=== PATIENT | female | born 1925 | race Caucasian/White ===

== ENCOUNTER 2017-08-16 16:28 | Outpatient (CLI) | payer MEDICARE, OTHER | END 2017-08-16 16:29 | disposition critical access hospital (66) | LOC: EMS 16:28 | PROVIDERS: ATTEND Surgery | DX: M25.562 Pain in left knee (principal); R41.0 Disorientation, unspecified | CPT/HCPCS: A0425; A0429 ==

== ENCOUNTER 2017-08-16 17:11 | Inpatient (IN) | payer MEDICARE, OTHER ==
--- NOTE | 2017-08-16 17:57 | ED Physician Documentation ---
PD HPI LOWER EXT INJURY - Stated complaint Stated Complaint: FALL - Chief complaint Chief Complaint: Ext Problem - History obtained from History obtained from: Patient, Family, EMS - History of Present Illness PD HPI LOW EXT INJURY LOCATION: Other (She lives in an assisted living facility , I guess she fell about 2 days ago. The patient does not remember it. Is unclear she has been ambulatory since then, her only complaint is left knee pain. Because she has become progressively confused today and there is concern about a UTI because of the smell.) Review of Systems Unable to obtain: Confused PD PAST MEDICAL HISTORY - Past Medical History Past Medical History: Yes Endocrine/Autoimmune: HyPERthyroidism - Past Surgical History Past Surgical History: Yes - Allergies Allergies/Adverse Reactions: Allergies Allergy/AdvReac Type Severity Reaction Status Date / Time No Known Drug Allergies Allergy Verified 08/16/17 17:22 - Social History Does the pt smoke?: No Smoking Status: Never smoker Does the pt drink ETOH?: No Does the pt have substance abuse?: No - Family History Family history: reports: Non contributory - Immunizations Immunizations are current?: Yes PD ED PE NORMAL - Vitals Vital signs reviewed: Yes - General General: Other (She is alert, says the years 2027, does not remember why she is here really.) - HEENT HEENT: PERRL, EOMI - Neck Neck: Supple, no meningeal sign, No bony TTP - Cardiac Cardiac: RRR, No murmur - Respiratory Respiratory: No respiratory distress, Clear bilaterally - Abdomen Abdomen: Normal bowel sounds, Soft, Non tender - Derm Derm: Normal color, Warm and dry - Extremities Extremities: Other (The left knee is quite tender and swollen, it is tender over the medial joint line. She has a lot of pain with range of motion. She also has pain with internal and external rotation of the leg which is more from the knee than the hip.) - Neuro Neuro: breakdown person 2-12 intact, No motor deficit, No sensory deficit, Normal speech Eye Opening: Spontaneous Motor: Obeys Commands Verbal: Confused GCS Score: 14 - Psych Psych: Normal mood, Normal affect Results - Vitals Vitals: Vital Signs - 24 hr 08/16/17 08/16/17 08/16/17 17:19 19:05 20:07 Temperature 37.1 C Heart Rate 83 81 79 Respiratory 20 18 16 Rate Blood Pressure 192/78 H 161/65 H 176/71 H O2 Saturation 98 96 98 Oxygen O2 Source Room air - Labs Labs: Laboratory Tests 08/16/17 08/16/17 08/16/17 18:55 18:55 18:55 WBC 14.1 H RBC 4.52 Hgb 10.1 L Hct 32.3 L MCV 71.4 L MCH 22.3 L MCHC 31.2 L RDW 20.3 H Plt Count 295 MPV 7.8 L Neut # 10.6 H Lymph # 1.6 Edwards # 1.4 H Eos # 0.4 Baso # 0.1 Absolute Nucleated RBC 0.01 Nucleated RBC % 0.0 Manual Slide Review Indicated Platelet Estimate NORMAL (130-450,000) Platelet Morphology NORMAL APPEARANCE RBC Morph Micro Appear 2+ POIKILOCYTOSIS Sodium 137 Potassium 3.2 L Chloride 105 Carbon Dioxide 24 Anion Gap 8.0 BUN 17 Creatinine 0.8 Estimated GFR (MDRD) 68 L Glucose 114 H Calcium 8.7 Total Bilirubin 1.1 H AST 55 H ALT 71 H Alkaline Phosphatase 190 H Troponin I < 0.04 Total Protein 6.6 L Albumin 2.8 L Globulin 3.8 Albumin/Globulin Ratio 0.7 L Lipase 14 L Urine Color Urine Clarity Urine pH Ur Specific [place] Urine Protein Urine Glucose (UA) Urine Ketones Urine Occult Blood Urine Nitrite Urine Bilirubin Urine Urobilinogen Ur Leukocyte Esterase Urine RBC Urine WBC Ur Squamous Epith Cells Urine Bacteria Ur Microscopic Review Urine Culture Comments 08/16/17 19:09 WBC RBC Hgb Hct MCV MCH MCHC RDW Plt Count MPV Neut # Lymph # Edwards # Eos # Baso # Absolute Nucleated RBC Nucleated RBC % Manual Slide Review Platelet Estimate Platelet Morphology RBC Morph Micro Appear Sodium Potassium Chloride Carbon Dioxide Anion Gap BUN Creatinine Estimated GFR (MDRD) Glucose Calcium Total Bilirubin AST ALT Alkaline Phosphatase Troponin I Total Protein Albumin Globulin Albumin/Globulin Ratio Lipase Urine Color YELLOW Urine Clarity CLOUDY Urine pH 5.5 Ur Specific [place] 1.020 Urine Protein 100 H Urine Glucose (UA) NEGATIVE Urine Ketones 15 H Urine Occult Blood TRACE-LYSE Urine Nitrite POSITIVE H Urine Bilirubin SMALL H Urine Urobilinogen >=8.0 H Ur Leukocyte Esterase TRACE H Urine RBC 0-5 Urine WBC 6-10 H Ur Squamous Epith Cells FEW Squamous Urine Bacteria Many H Ur Microscopic Review INDICATED Urine Culture Comments INDICATED - Rads (name of study) X-rays of the left hip and knee Radiology: EMP read contemporaneously (Degenerative changes and a large effusion in the knee without acute bony abnormality.) PD MEDICAL DECISION MAKING - ED course ED course: This is an 89-year-old woman who presents with an acute confusion and she fell 2 days ago injuring her knee. Plain film x-rays are negative but there is a very large effusion of the left knee. She is found to have a UTI with a white count of 14 for which she was administered Rocephin and IV fluids. Given the acute confusion she will be admitted for further evaluation and treatment and I spoke with Dr. Recinos for admission at 8:18 PM. I also spoke with Dr. Owens, given the large effusion he should probably consult nonurgently while she is an inpatient regarding the left knee. Departure - Departure Disposition: [facility] DC/Xfer Clinical Impression: Effusion, left knee, Confusion UTI (urinary tract infection) Qualifiers: Urinary tract infection type: acute cystitis Hematuria presence: without hematuria Qualified Code(s): N30.00 - Acute cystitis without hematuria Condition: Stable Discharge Date/Time: 08/16/17 21:07
[2017-08-16 19:03] LABS: BASOPHILS # (AUTO) 0.1 10^3/uL (0.0-0.1); BASOPHILS % (AUTO) 0.6 %; EOSINOPHILS # (AUTO) 0.4 10^3/uL (0.0-0.7); HGB - HEMOGLOBIN 10.1 g/dL (12.0-16.0); LYMPHOCYTES # (AUTO) 1.6 10^3/uL (1.5-3.5); LYMPHOCYTES % (AUTO) 11.4 %; MEAN CORPUSCULAR HEMOGLOBIN 22.3 pg (27.0-31.0); MEAN CORPUSCULAR HGB CONC 31.2 g/dL (32.0-36.0); MEAN CORPUSCULAR VOLUME 71.4 fL (81.0-99.0); MEAN PLATELET VOLUME 7.8 fL (7.9-10.8); MONOCYTES # (AUTO) 1.4 10^3/uL (0.0-1.0); MONOCYTES % (AUTO) 9.7 %; NEUTROPHILS # (AUTO) 10.6 10^3/uL (1.5-6.6); NEUTROPHILS % (AUTO) 75.3 %; PLT - PLATELET COUNT 295 10^3/uL (130-450); RED BLOOD COUNT 4.52 10^6/uL (4.20-5.40); RED CELL DISTRIBUTION WIDTH 20.3 % (12.0-15.0); WHITE BLOOD COUNT 14.1 x10^3/uL (4.8-10.8)
--- NOTE | 2017-08-16 19:08 | XRAY Preliminary Report ---
Exam: XR HIP W/PELVIS 2-3V LT IMPRESSION: No acute bony abnormality. [facility] SITE ID: [id number]
--- NOTE | 2017-08-16 19:14 | XRAY Report ---
EXAM: LEFT HIP AND PELVIS RADIOGRAPHY EXAM DATE: 08/16/2017 06:49 PM. HISTORY: Pain since a fall 2 days ago. COMPARISONS: 06/17/2008. TECHNIQUE: 1 view of the pelvis and 1 view of the hip. FINDINGS: Bones: Normal. No fracture or bone lesion. Joints: Progression of moderate degenerative changes both hips. Normal sacroiliac joints. Soft Tissues: Lower pelvic sutures. No soft tissue swelling. IMPRESSION: No acute bony abnormality. [facility] Referring Provider Line: [phone] SITE ID: [id number]
[2017-08-16 19:17] LABS: GLUCOSE, URINE (UA) NEGATIVE (NEGATIVE); KETONES,URINE (UA) 15 mg/dL (NEGATIVE); LEUKOCYTE ESTERASE, URINE TRACE (NEGATIVE); NITRITE,URINE POSITIVE (NEGATIVE); OCCULT BLOOD,URINE TRACE-LYSE (NEGATIVE); PH,URINE 5.5 PH (5.0-7.5); PROTEIN,URINE 100 mg/dL (NEGATIVE); UROBILINOGEN,URINE >=8.0 E.U./dL (NORMAL)
--- NOTE | 2017-08-16 19:17 | XRAY Preliminary Report ---
Exam: XR KNEE 4 VIEW LT IMPRESSION: 1. No acute bony abnormality. 2. Large effusion. 3. Moderate degenerative changes, grade 2 by Kellgren sammy classification. [facility] SITE ID: [id number]
[2017-08-16 19:23] LABS: BILIRUBIN,URINE SMALL (NEGATIVE); CLARITY,URINE CLOUDY (CLEAR); ICTOTEST,URINE POSITIVE
[2017-08-16 19:26] LABS: PLATELET ESTIMATE, MANUAL NORMAL (130-450,000) (NORMAL); PLATELET MORPHOLOGY NORMAL APPEARANCE (NORMAL)
[2017-08-16 19:29] LABS: ALBUMIN 2.8 g/dL (3.2-5.5); ALBUMIN/GLOBULIN RATIO 0.7 (1.0-2.2); BILIRUBIN,TOTAL 1.1 mg/dL (0.2-1.0); CALCIUM 8.7 mg/dL (8.5-10.3); CREATININE 0.8 mg/dL (0.4-1.0); TOTAL PROTEIN 6.6 g/dL (6.7-8.2)
[2017-08-16 19:30] LABS: BACTERIA,URINE Many /HPF (None Seen); RBC,URINE 0-5 /HPF (0-5); SQUAMOUS EPITHELIAL CELL,UR FEW Squamous (<= Few)
--- NOTE | 2017-08-16 19:34 | XRAY Report ---
EXAM: left KNEE RADIOGRAPHY EXAM DATE: 08/16/2017 06:50 PM. CLINICAL HISTORY: Pain since a fall 2 days ago. COMPARISON: None. TECHNIQUE: 4 views. FINDINGS: Bones: Normal. No fractures or bone lesions. Joints: Large effusion. Moderate degenerative changes involving the lateral compartment to the greatest degree. Mild genu shawanda gum. Soft Tissues: Normal. No soft tissue swelling. IMPRESSION: 1. No acute bony abnormality. 2. Large effusion. 3. Moderate degenerative changes, grade 2 by Kellgren Alok classification. [facility] Referring Provider Line: [phone] SITE ID: [id number]
[2017-08-16] MEDS ORDERED: cefTRIAXone 1 GM in SODIUM CHLORIDE 0.9% MINIBAG 100 ML IV STA (19:42)
[2017-08-16] MEDS ORDERED: ONDANSETRON ODT 4 MG TABLET TL PRN (20:36)
[2017-08-16] MEDS ORDERED: ONDANSETRON 4 MG/2 ML VIAL IVP PRN (20:36)
[2017-08-16] MEDS ORDERED: SODIUM CHLORIDE 0.9% 1,000 ML IV SCH (21:00)
[2017-08-16] MEDS: SODIUM CHLORIDE FLUSH 0.9% 10 ML SYRINGE IVP PRN (21:50)
[2017-08-16] MEDS ORDERED: POTASSIUM CHLORIDE 20 MEQ TABLET PO SCH (23:55)
--- NOTE | 2017-08-17 01:38 | HISTORY & PHYSICAL EXAMINATION ---
DATE OF SERVICE: 08/16/2017 Physician: Amalia Recinos MD PRIMARY CARE PROVIDER: Bruce Aguayo MD ADMITTING PROVIDER: Amalia Recinos MD CHIEF COMPLAINT: Confusion. HISTORY OF PRESENT ILLNESS: This is a moderately overweight, elderly woman who lives in an assisted living facility for probably 4 years. She thinks that the time frame is correct give or take a few months. She moved to the assisted living facility because her second was in quite bad shape and in need of help, and she could not take care of him by herself. That is why they moved there. She herself has been suffering progressive memory loss. It has been mild, but steady and noticeable according to her grandson who is with her today. She does have a history of falls. She walks with a walker. The walker is because of osteoarthritis of the knee limiting her mobility, not because she has cerebellar ataxia. She did have a fall that was severe enough that resulted in a concussion and a transfer to [facility] in ~2008. With this current admission, the patient fell approximately 2 days ago. Vague about why. She knows she was using the walker, but cannot remember if she tripped on something or if she lost her balance. She cannot remember if she hit her head. She denies fever, chills , rigors. She has been tired. She does have a history of frequent UTIs. Because of the fall, her left knee has been very painful and swollen. She really did not want to get out of bed for the last couple of days. Today, she was frankly confused, lethargic and the family, fearing another concussion, had her come to the emergency room. In our emergency room, she is confused, temperature is 37.1, blood pressure 192/78. She was evaluated by Dr. Shoemaker and she is a little bit confused, and no other findings on physical exam other than the left knee was tender and swollen with a huge effusion. She was mildly hypokalemic at 3.2. White cell count was elevated to 14 with diminished hemoglobin of 10.1. Urinalysis had ketones, nitrites, bilirubin, urobilinogen, leukocyte esterase, and many squamous cells. She has many bacteria and a culture will be done. She is felt to have a UTI with metabolic encephalopathy. PAST MEDICAL HISTORY 1. Hyperthyroidism. 2. Fall with concussion. 3. G2, P2. 4. Osteoarthritis of the knees. ALLERGIES: NO KNOWN DRUG ALLERGIES. MEDICATIONS: None. SOCIAL HISTORY: She never smoked, rarely drinks. She was born in [place] and with her first marriage moved to [place] when she was about 21. She has been twice. Her last 2 years ago and it was her second that moved them to [facility] because they just loved it here. 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 Again, they moved to [facility] because her needed help. She has ended up staying on because of her memory problems and mobility problems requiring a walker. One daughter does live on the [place], but she alternates between [place] and here. She is currently in [place]. That is the power of radio time buyer. Accompanying her tonight is her grandson who lives in [place]. FAMILY HISTORY: Mother at age 89 of old age. Dad at 91 of old age. Of 2 daughters, one of glioblastoma. Of four siblings, one of because of falling and cracking his skull. Her 3 sisters are alive and healthy as far as she knows. REVIEW OF SYSTEMS: Difficult to obtain because this woman is so vague and a little bit confused. She is also not very happy about being here and is a little bit mutinous about wanting to cooperate with me because she does not want to be admitted. She does admit that she has had a chest cold recently and she is constantly having to clear her throat because of postnasal drip. Arthritis is also a problem, especially in her knees and hips. ENT: Other than that, she has the postnasal drip and ENT questioning. Some mild decreased hearing. CARDIAC: Negative. PULMONARY: Negative. No coughing, No chest pain. No edema. No orthopnea. GASTROINTESTINAL: Negative. GENITOURINARY: Negative. JOINTS: Positive for arthritis. 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 No syncope. No seizures. PHYSICAL EXAMINATION VITAL SIGNS: She is still saying she does not want to be admitted, but reluctantly agrees by being cajoled by her grandson. Temperature is 37.1, pulse is in the 70s, blood pressure is now 176/71, Respirations are 16 and unlabored. she is 98% on room air. GENERAL: She is a pleasant, moderately overweight, elderly woman who knows where she is, but not why she is here. HEAD AND NECK: Unremarkable for contusion. Pupils are reactive. Sclerae are nonicteric. Moist oral mucosa that is pink. During her exam, she keeps on clearing her throat and occasional mild cough to clear it even further, but no nasal congestion, no rhinorrhea. Neck is supple. No goiter or bruits. No JVD. LUNGS: Clear to auscultation and percussion. CARDIAC: Regular rate and rhythm. No murmurs, rubs or gallops. ABDOMEN: Soft, nontender, obese. Normal bowel sounds. Unable to assess for organomegaly because of weight and size of pannus. EXTREMITIES: Trace edema. You can see where her socks have left markings, but no clubbing. No cyanosis. The left knee is warm, she does not want me to bend it. There is no redness. NEUROLOGIC: The patient is alert to place, not the date and not why she is here. Cranial nerves II through XII appear grossly intact. While she is able to grasp my hands, lift her arms above her head symmetrically, and lift her legs off the bed, she does not have the strength to sit up, to transfer to a sitting position from lying position, and most certainly not to transfer from a sitting position to standing on the floor. She is weak and unsteady when I attempt it. There are no focal deficits. LABORATORY DATA: Urinalysis as above. While there are squamous cells, there is also indication of infection. Sodium 137, potassium 3.2, BUN 17, creatinine 0.8, random glucose 114, total bilirubin 1.1, AST 55, ALT 71, alkaline phosphatase 190. Troponin is less than 0.04. White cell count is 14.1, hemoglobin 10.1, hematocrit 32.3. Unfortunately, there are no old labs to refer to. ASSESSMENT AND PLAN 1. Metabolic encephalopathy. At this time it is attributed to problem #2, which is a urinary tract infection. The question of a ground level fall because of imbalance, and previous history of concussion is also being taken into account. Nevertheless, if her confusion continues or worsens with a waxing and waning phenomena, we will do a CT of the head. PLAN: Admit the patient for treatment of urinary tract infection. We will hydrate with 0.9 normal saline 1 liter. ATTESTATION: The patient will be admitted less than 96 hours. 2. Urinary tract infection. Has received ceftriaxone in the emergency room. We will resume ceftriaxone 1 gram daily tomorrow. Adjust antibiotics on the basis of a urine culture. It will probably take 48 hours for that urine culture to come back. 3. Abnormal liver function studies. Abdominal exam is negative and there is no epigastric or RUQ pain. PLAN Ultrasound. Acute hepatitis panel. There are no old labs to refer to. 4. Left knee effusion. Dr. Shoemaker has already contacted Dr. Owens who is Orthopedics public administration teacher. Dr. Owens plans on seeing the patient in the morning, and there may or may not be an arthrocentesis. 5. DO NOT RESUSCITATE status per her grandson's recollection. He will ask his aunt, the patient's daughter who is power of radio time buyer. 6. Deep venous thrombosis prophylaxis will be TREVOR franz. 7. request old records from [facility] with regards to her fall and concussion. 8. Memory loss noted. Probable early dementia. TD: 08/17/2017 01:37 Addendum: I was able to review old records from [place] [facility]. She had a fall without concussion or intracranial hemorrhage in 2008. She Then was admitted for an abnormal abdominal CT scan, no pain and loss of weight. 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 RIKY
[2017-08-17] MEDS: SODIUM CHLORIDE FLUSH 0.9% 10 ML SYRINGE IVP SCH ×3 (03:44→16:27)
[2017-08-17 04:44] LABS: BASOPHILS # (AUTO) 0.1 10^3/uL (0.0-0.1); BASOPHILS % (AUTO) 0.5 %; EOSINOPHILS # (AUTO) 0.5 10^3/uL (0.0-0.7); EOSINOPHILS % (AUTO) 3.8 %; HGB - HEMOGLOBIN 9.5 g/dL (12.0-16.0); LYMPHOCYTES # (AUTO) 1.9 10^3/uL (1.5-3.5); LYMPHOCYTES % (AUTO) 14.7 %; MEAN CORPUSCULAR HEMOGLOBIN 23.1 pg (27.0-31.0); MEAN CORPUSCULAR HGB CONC 32.4 g/dL (32.0-36.0); MEAN CORPUSCULAR VOLUME 71.4 fL (81.0-99.0); MEAN PLATELET VOLUME 8.5 fL (7.9-10.8); MONOCYTES # (AUTO) 1.4 10^3/uL (0.0-1.0); MONOCYTES % (AUTO) 10.9 %; NEUTROPHILS # (AUTO) 9.1 10^3/uL (1.5-6.6); NEUTROPHILS % (AUTO) 70.1 %; PLT - PLATELET COUNT 251 10^3/uL (130-450); RED CELL DISTRIBUTION WIDTH 20.2 % (12.0-15.0); WHITE BLOOD COUNT 12.9 x10^3/uL (4.8-10.8)
[2017-08-17 04:46] LABS: CALCIUM 8.2 mg/dL (8.5-10.3); CREATININE 0.9 mg/dL (0.4-1.0)
[2017-08-17 05:02] LABS: ALBUMIN 2.6 g/dL (3.2-5.5); BILIRUBIN,DIRECT 0.4 mg/dL (0.1-0.5); TOTAL PROTEIN 6.2 g/dL (6.7-8.2)
[2017-08-17] MEDS: POLYETHYLENE GLYCOL 3350 17 GM PACKET PO SCH (07:47)
[2017-08-17] MEDS ORDERED: SODIUM CHLORIDE 0.9% 1,000 ML IV SCH (09:00)
[2017-08-17 10:25] LABS: CC,BF RBC 9176 /mm^3
[2017-08-17 10:45] LABS: BF COLOR YELLOW; BF SOURCE KNEE; LYMPHOCYTES %,BODY FLUID 1; MESOTHELIAL %, BF 0 %
--- NOTE | 2017-08-17 11:28 | Ultrasound Report ---
COMPLETE ABDOMINAL ULTRASOUND: 08/17/2017 CLINICAL INDICATION: Abnormal LFT's. COMPARISON: CT 09/02/2011. TECHNIQUE: Real-time scanning was performed with warehouse representative static images obtained. FINDINGS: The liver measures 14.8 cm. There is a 5 cm echogenic lesion in the dome of the right lobe of the liver, likely representing a hemangioma. There is a second hypoechoic nodule in the left lobe, measuring 1 cm, suspicious for a possible metastatic lesion. The gallbladder is surgically absent. The common bile duct measures 9 mm. The visualized pancreas is unremarkable. The right kidney measures 11.1 cm, and demonstrates a tiny cortical cyst. The left kidney measures 9.5 cm, and appears unremarkable. The spleen measures 8 cm, and demonstrates normal echotexture. No free fluid is present. The abdominal aorta is normal in caliber. The inferior vena cava is unremarkable. IMPRESSION: 1. SUSPICIOUS SOLID NODULE IN THE LEFT LOBE OF THE LIVER. CONSIDER FURTHER EVALUATION WITH CT. 2. LIKELY 5 CM HEMANGIOMA IN THE RIGHT LOBE OF THE LIVER. 3. POSTOPERATIVE CHANGES OF CHOLECYSTECTOMY. TD: 08/17/2017 11:27
[2017-08-17 11:30] LABS: BF COLOR YELLOW; BF SOURCE KNEE; LYMPHOCYTES %,BODY FLUID 2; MESOTHELIAL %, BF 0 %
[2017-08-17 11:43] LABS: CC,BF RBC 4951 /mm^3
[2017-08-17] MEDS: SODIUM CHLORIDE FLUSH 0.9% 10 ML SYRINGE IVP PRN (11:44)
--- NOTE | 2017-08-17 12:10 | CONSULTATION NOTE ---
DATE OF SERVICE: 08/17/2017 Physician: Alba Owens MD CHIEF COMPLAINT: Left knee pain. 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 She had a gradual developing left knee pain, and also increasing foul smelling urine detected by the staff of the center, and she was brought to the emergency room last evening at approximately 6 p.m. Workup there revealed the patient to have a urinary tract infection and confusion that was worse than baseline. She was also found to have fluid and an effusion of the left knee. She was admitted to the hospitalist for management of her medical problem and urinary tract infection, and Orthopedics was consulted because of her knee effusion. Patient's prior medical history is derived solely from the medical record, and the record does not contain much information other than that there are NO DRUG ALLERGIES. The patient herself is a poor historian, but she is very definitely complaining of knee pain. PHYSICAL EXAMINATION GENERAL: Exam shows a pleasant lady lying in bed, not appearing in distress. She is pleasant to talk to and does seem to be oriented to place, and somewhat to situation. EXTREMITIES: Her upper body orthopedic exam is unremarkable. Her lower extremities reveal a fairly large effusion of the left knee with a normal-appearing alignment and no redness or discoloration. The skin is faintly warm, but it is equally sign language instructor the right knee where there is a minor effusion. The patient does definitely have pain with motion of either knee, but more severely painful with movement of the left knee. She has a normal distal neurovascular exam to touch and movement of toes and normal circulation. Her hip does not appear to be painful. STUDIES: X-rays are reviewed, and the patient has both hip arthritis and knee arthritis and has large effusion in the left knee. IMPRESSION: The patient may have a septic effusion of left and right knees, and especially in the face of bladder infection with possible hematologic spread. RECOMMENDATION: Aspiration of both knees, which was sterilely undertaken, with samples going to the lab for evaluation and culture. The patient will be held in readiness for possible need for surgical treatment and arthroscopic debridement of her knees. TD: 08/17/2017 10:15
--- NOTE | 2017-08-17 16:09 | PROVIDER PROGRESS NOTE ---
Subjective - Prog Note Date Prog Note Date: 08/17/17 - Subjective Pt reports feeling: Improved Subjective: pt is alert and clear mind to have a conversation. Pt denies chest pain, fever, chill, cough. Pt report bilateral knee effusion, left worsen than right. Denies injury to the knee. Current Medications - Current Medications Current Medications: Active Medications Clonidine HCl (Catapres) 0.1 mg PO BID PRN PRN Reason: Hypertensive Emergency Ceftriaxone Sodium 1 gm/ (Sodium Chloride) 100 mls @ 200 mls/hr IV Q24H EDOUARD Sodium Chloride (Normal Saline 0.9%) 1,000 mls @ 50 mls/hr IV .Q20H [facility] Multi-Ingredient Ointment (Zinc Oxide) 1 applic TOP PRN PRN PRN Reason: Skin Care Ondansetron HCl (Zofran Inj) 4 mg IVP Q6HR PRN PRN Reason: Nausea / Vomiting Ondansetron HCl (Zofran Odt) 4 mg TL Q6HR PRN PRN Reason: Nausea / Vomiting Oxycodone HCl (Roxicodone) 5 mg PO Q4HR PRN PRN Reason: Pain 5 to 7 Polyethylene Glycol (Miralax) 17 gm PO DAILY [facility] Last Admin: 08/17/17 07:47 Dose: Not Given Sodium Chloride (Normal Saline Flush 0.9%) 10 ml IVP PRN PRN PRN Reason: NEEDED PER PROVIDER ORDERS Last Admin: 08/17/17 11:44 Dose: 10 ml Sodium Chloride (Normal Saline Flush 0.9%) 10 ml IVP 0100,0900,1700 [facility] Last Admin: 08/17/17 16:27 Dose: Not Given Objective - Vital Signs/Intake & Output Reviewed Vital Signs: Yes Vital Signs: Vital Signs x48h Temp Pulse Resp BP Pulse Ox 08/17/17 16:00 37.1 C 74 26 H 153/50 H 94 Intake & Output: Intake & Output 08/14/17 08/15/17 08/16/17 08/17/17 23:59 23:59 23:59 23:59 Intake Total 500 1000 Balance 500 1000 - Objective General Appearance: positive: No acute distress, Alert. negative: Lethargic Eyes Bilateral: positive: Normal inspection, PERRL, No lid inflammation, Conjunctivae nml ENT: positive: ENT inspection nml, Pharynx nml, No signs of dehydration. negative: Purulent nasal drainage, Pharyngeal erythema, Oral lesions Neck: positive: Nml inspection, Thyroid nml, No JVD, Trachea midline. negative : Thyromegaly, Lymphadenopathy (R), Lymphadenopathy (L), Stiff neck, Carotid bruit, Swelling/bruising, Tracheal deviation Respiratory: positive: Chest non-tender, No respiratory distress, Breath sounds nml. negative: Wheezes, Rales, Rhonchi Cardiovascular: positive: Regular rate & rhythm, No murmur, No gallop. negative : Irregularly irregular, Extrasystoles, Tachycardia, Bradycardia, Systolic murmur, Diastolic murmur Peripheral Pulses: 2+ Radial (R), 2+ Radial (L), 2+ Dorsalis pedis (R), 2+ Dorsalis pedis (L) Abdomen: positive: Non-tender, No organomegaly, Nml bowel sounds, No distention. negative: Tenderness, Guarding, Rebound Back: positive: Nml inspection. negative: CVA tenderness (R), CVA tenderness (L ) Skin: positive: Color nml, No rash, Warm, Dry. negative: Cyanosis, Diaphoresis , Pallor Extremities: positive: Non-tender, Full ROM, Joint swelling. negative: Calf tenderness, Marissa's sign/cords Neurologic/Psychiatric: positive: Sensation nml. negative: Sensory loss, Facial droop, Slurred/abnml speech, Depressed mood/affect - Lab Results Fish Bones: 08/17/17 04:04 08/17/17 04:04 Other Labs: Lab Results x24hrs 08/17/17 08/17/17 08/17/17 Range/Units 09:00 09:00 09:00 WBC (4.8-10.8) x10^3/uL RBC (4.20-5.40) 10^6/uL Hgb (12.0-16.0) g/dL Hct (37.0-47.0) % MCV (81.0-99.0) fL MCH (27.0-31.0) pg MCHC (32.0-36.0) g/dL RDW (12.0-15.0) % Plt Count (130-450) 10^3/uL MPV (7.9-10.8) fL Neut # (1.5-6.6) 10^3/uL Lymph # (1.5-3.5) 10^3/uL [place] # (0.0-1.0) 10^3/uL Eos # (0.0-0.7) 10^3/uL Baso # (0.0-0.1) 10^3/uL Absolute Nucleated RBC x10^3/uL Nucleated RBC % /100WBC Sodium (135-145) mmol/L Potassium (3.5-5.0) mmol/L Chloride (101-111) mmol/L Carbon Dioxide (21-32) mmol/L Anion Gap (6-13) BUN (6-20) mg/dL Creatinine (0.4-1.0) mg/dL Estimated GFR (MDRD) (>89) Glucose (70-100) mg/dL Calcium (8.5-10.3) mg/dL Total Bilirubin (0.2-1.0) mg/dL Direct Bilirubin (0.1-0.5) mg/dL AST (10-42) IU/L ALT (10-60) IU/L Alkaline Phosphatase (42-121) IU/L Total Protein (6.7-8.2) g/dL Albumin (3.2-5.5) g/dL Globulin (2.1-4.2) g/dL Fluid Source KNEE KNEE Fluid Color YELLOW YELLOW Fluid Clarity CLOUDY CLOUDY Fluid WBC 37109 46098 /mm^3 Fluid RBC 4951 9176 /mm^3 Fluid Neutrophils % 98 99 % Fluid Lymphocytes % 2 1 Fld Mesothelial Cell % 0 0 % Fluid Crystals NONE SEEN 08/17/17 08/17/17 08/17/17 Range/Units 04:04 04:04 04:04 WBC 12.9 H (4.8-10.8) x10^3/uL RBC 4.10 L (4.20-5.40) 10^6/uL Hgb 9.5 L (12.0-16.0) g/dL Hct 29.3 L (37.0-47.0) % MCV 71.4 L (81.0-99.0) fL MCH 23.1 L (27.0-31.0) pg MCHC 32.4 (32.0-36.0) g/dL RDW 20.2 H (12.0-15.0) % Plt Count 251 (130-450) 10^3/uL MPV 8.5 (7.9-10.8) fL Neut # 9.1 H (1.5-6.6) 10^3/uL Lymph # 1.9 (1.5-3.5) 10^3/uL [place] # 1.4 H (0.0-1.0) 10^3/uL Eos # 0.5 (0.0-0.7) 10^3/uL Baso # 0.1 (0.0-0.1) 10^3/uL Absolute Nucleated RBC 0.00 x10^3/uL Nucleated RBC % 0.0 /100WBC Sodium 138 (135-145) mmol/L Potassium 3.6 (3.5-5.0) mmol/L Chloride 108 (101-111) mmol/L Carbon Dioxide 23 (21-32) mmol/L Anion Gap 7.0 (6-13) BUN 20 (6-20) mg/dL Creatinine 0.9 (0.4-1.0) mg/dL Estimated GFR (MDRD) 59 L (>89) Glucose 116 H (70-100) mg/dL Calcium 8.2 L (8.5-10.3) mg/dL Total Bilirubin 1.0 (0.2-1.0) mg/dL Direct Bilirubin 0.4 (0.1-0.5) mg/dL AST 40 (10-42) IU/L ALT 58 (10-60) IU/L Alkaline Phosphatase 199 H (42-121) IU/L Total Protein 6.2 L (6.7-8.2) g/dL Albumin 2.6 L (3.2-5.5) g/dL Globulin 3.6 (2.1-4.2) g/dL Fluid Source Fluid Color Fluid Clarity Fluid WBC /mm^3 Fluid RBC /mm^3 Fluid Neutrophils % % Fluid Lymphocytes % Fld Mesothelial Cell % % Fluid Crystals Assessment/Plan - Problem List (1) Metabolic encephalopathy Impression: pt is alert and have a clear conversation with me. It seems resolved continue orientation chest TSH, B12, ammonia level, it seems pt has abnormal liver function as well. neuro check vital monitor (2) Effusion, left knee Impression: consult with orthopedics. Orth drainage bilateral knee, and culture and gram staining The Gram staining of bilateral knee effusion are negative but with moderate WBC , indicate inflammation, will follow up culture in the final add PT/OT check CRP/ESR, RA, dsDNA (3) UTI (urinary tract infection) Impression: continue Rocephin and follow up UA culture Qualifiers: Urinary tract infection type: acute cystitis Hematuria presence: without hematuria Qualified Code(s): N30.00 - Acute cystitis without hematuria (4) Abnormal liver function Impression: order CT of abdomen/pelvic, R/O abnormal finding in US of liver continue monitor liver function and follow up hepatitis panel
[2017-08-17] MEDS ORDERED: ZINC OXIDE 20% OINT 28.35 GM TUBE TOP PRN (17:33)
[2017-08-17] MEDS: SODIUM CHLORIDE 0.9% 1,000 ML IV SCH (19:09)
[2017-08-17] MEDS: cefTRIAXone 1 GM in SODIUM CHLORIDE 0.9% MINIBAG 100 ML IV SCH (20:26)
[2017-08-17] MEDS: cloNIDine 0.1 MG TABLET PO PRN (20:36)
[2017-08-17] MEDS ORDERED: IOPAMIDOL-300 100 ML VIAL ONE (20:59)
[2017-08-17] MEDS ORDERED: IOPAMIDOL-300 100 ML VIAL IVP ONE (21:41)
--- NOTE | 2017-08-17 23:41 | CT Preliminary Report ---
Exam: CT ABDOMEN/PELVIS W/ IMPRESSION: 1. Small left liver nodule seen on ultrasound is not specific on this single phase CT but not clearly a metastasis. In this patient with a probable larger hemangioma, suspect this is more likely a secon d hemangioma in the absence of a known primary malignancy. This could be confirmed with hepatic kenna col MRI. This would also better evaluate the larger 5 cm right liver nodule, suspected to be a nico ioma on ultrasound with imaging characteristics on CT supporting but not confirmatory for hemangioma. 2. Colonic diverticulosis. 3. Post cholecystectomy, appendectomy, and hysterectomy. [facility] SITE ID: [id number]
--- NOTE | 2017-08-17 23:48 | CT Report ---
EXAM: CT ABDOMEN AND PELVIS EXAM DATE: 08/17/2017 09:49 PM. CLINICAL HISTORY: Abnormal finding on ultrasound of liver. COMPARISONS: 08/17/2017 ultrasound, CT 09/02/2011. TECHNIQUE: Routine helical CT imaging was performed through the abdomen and pelvis. IV contrast: Yes . Interpreting radiologist was not involved with protocoling this study as a single phase study. Ent toni contrast: No . Reconstructions: Coronal and sagittal. In accordance with CT protocol optimization, one or more of the following dose reduction techniques w ere utilized for this exam: automated exposure control, adjustment of mA and/or KV based on patient s ize, or use of iterative reconstructive technique. FINDINGS: Lung Bases: Unremarkable. Liver: Right liver solid mass with small hyperdense nodules but not clearly hemangioma, measuring 48 x 33 mm on axial image 21 and 39 mm on coronal image 34. On image 23, there is a tiny, approximately 7 mm, hypodense nodule in the lateral segment of the left liver which is indeterminate. No other nodu le is seen. Gallbladder/Bile Ducts: Unremarkable post-cholecystectomy. Spleen: Unremarkable. Pancreas: Unremarkable. Adrenal Glands: Unremarkable. Kidneys: Unremarkable. No suspicious masses or hydronephrosis. Peritoneal Cavity/Bowel: Colonic diverticulosis. No bowel obstruction or inflammatory process seen. N o free air or significant free fluid. No masses or adenopathy. The appendix is out. No excessive stoo l burden. Pelvic Organs: Post-hysterectomy with no adnexal masses seen. The bladder appears within normal limit s. Vasculature: No aneurysms or other significant abnormality. Bones: No significant abnormality. Other: None. IMPRESSION: 1. Small left liver nodule seen on ultrasound is nonspecific on this single phase CT but not clearly a metastasis. In this patient with a probable larger hemangioma, suspect this is more likely a second hemangioma in the absence of a known primary malignancy. This could be confirmed with hepatic protoc ol MRI. This would also better evaluate the larger 5 cm right liver nodule, suspected to be an nico ioma on ultrasound with imaging characteristics on CT supporting, but not confirmatory, for hemangiom a. 2. Colonic diverticulosis. 3. Post-cholecystectomy, appendectomy, and hysterectomy. [facility] Referring Provider Line: [phone] SITE ID: [id number]
[2017-08-18] MEDS: SODIUM CHLORIDE FLUSH 0.9% 10 ML SYRINGE IVP SCH ×3 (01:00→17:25)
[2017-08-18 04:49] LABS: BASOPHILS % (AUTO) 0.3 %; EOSINOPHILS # (AUTO) 0.7 10^3/uL (0.0-0.7); EOSINOPHILS % (AUTO) 6.4 %; LYMPHOCYTES # (AUTO) 1.7 10^3/uL (1.5-3.5); LYMPHOCYTES % (AUTO) 15.8 %; MEAN CORPUSCULAR HEMOGLOBIN 22.8 pg (27.0-31.0); MEAN CORPUSCULAR HGB CONC 31.6 g/dL (32.0-36.0); MEAN PLATELET VOLUME 7.9 fL (7.9-10.8); MONOCYTES # (AUTO) 1.1 10^3/uL (0.0-1.0); MONOCYTES % (AUTO) 10.4 %; NEUTROPHILS # (AUTO) 7.2 10^3/uL (1.5-6.6); NEUTROPHILS % (AUTO) 67.1 %; PLT - PLATELET COUNT 258 10^3/uL (130-450); RED BLOOD COUNT 3.93 10^6/uL (4.20-5.40); RED CELL DISTRIBUTION WIDTH 20.6 % (12.0-15.0); WHITE BLOOD COUNT 10.7 x10^3/uL (4.8-10.8)
[2017-08-18 05:05] LABS: ALBUMIN 2.3 g/dL (3.2-5.5); ALBUMIN/GLOBULIN RATIO 0.7 (1.0-2.2); BILIRUBIN,TOTAL 0.4 mg/dL (0.2-1.0); CALCIUM 8.6 mg/dL (8.5-10.3); CREATININE 0.8 mg/dL (0.4-1.0); CRP - C-REACTIVE PROTEIN 17.2 mg/dL (0-1.0); MAGNESIUM 1.8 mg/dL (1.7-2.8); TOTAL PROTEIN 5.7 g/dL (6.7-8.2)
[2017-08-18] MEDS: SODIUM CHLORIDE 0.9% 1,000 ML IV SCH (05:09)
[2017-08-18 05:12] LABS: RHEUMATOID FACTOR POSITIVE (Negative)
[2017-08-18 05:58] LABS: PLATELET ESTIMATE, MANUAL NORMAL (130-450,000) (NORMAL); PLATELET MORPHOLOGY NORMAL APPEARANCE (NORMAL)
--- NOTE | 2017-08-18 07:17 | PROVIDER PROGRESS NOTE ---
Subjective - General Admit Date: 08/16/17 Objective - Patient Data Reviewed Vital Signs: Yes Vital Signs: Vital Signs x48h Temp Pulse Resp BP Pulse Ox 08/18/17 00:00 37.3 C 71 21 163/65 H 93 Weight: Weight 08/16/17 08/17/17 08/18/17 23:59 23:59 23:59 Weight (kg) 79.5 kg Intake & Output: Intake and Output Totals x24h 08/16/17 08/17/17 08/18/17 23:59 23:59 23:59 Intake Total 500 1340 875 Balance 500 1340 875 - Lab Results Lab Results: 08/18/17 04:32 08/18/17 04:32 Other Lab Results: Lab Results x24hrs 08/18/17 08/18/17 08/18/17 Range/Units 04:32 04:32 04:32 WBC (4.8-10.8) x10^3/uL RBC (4.20-5.40) 10^6/uL Hgb (12.0-16.0) g/dL Hct (37.0-47.0) % MCV (81.0-99.0) fL MCH (27.0-31.0) pg MCHC (32.0-36.0) g/dL RDW (12.0-15.0) % Plt Count (130-450) 10^3/uL MPV (7.9-10.8) fL Neut # (1.5-6.6) 10^3/uL Lymph # (1.5-3.5) 10^3/uL [place] # (0.0-1.0) 10^3/uL Eos # (0.0-0.7) 10^3/uL Baso # (0.0-0.1) 10^3/uL Absolute Nucleated RBC x10^3/uL Nucleated RBC % /100WBC Manual Slide Review Platelet Estimate (NORMAL) Platelet Morphology (NORMAL) RBC Morph Micro Appear (NORMAL) ESR 81 H (0-30) mm/Hr Sodium (135-145) mmol/L Potassium (3.5-5.0) mmol/L Chloride (101-111) mmol/L Carbon Dioxide (21-32) mmol/L Anion Gap (6-13) BUN (6-20) mg/dL Creatinine (0.4-1.0) mg/dL Estimated GFR (MDRD) (>89) Glucose (70-100) mg/dL Calcium (8.5-10.3) mg/dL Magnesium (1.7-2.8) mg/dL Total Bilirubin (0.2-1.0) mg/dL AST (10-42) IU/L ALT (10-60) IU/L Alkaline Phosphatase (42-121) IU/L Ammonia 20.9 (7-35) umol/L C-Reactive Protein (0-1.0) mg/dL Total Protein (6.7-8.2) g/dL Albumin (3.2-5.5) g/dL Globulin (2.1-4.2) g/dL Albumin/Globulin Ratio (1.0-2.2) Vitamin B12 (180-914) pg/mL TSH (0.34-5.60) uIU/mL Fluid Source Fluid Color Fluid Clarity Fluid WBC /mm^3 Fluid RBC /mm^3 Fluid Neutrophils % % Fluid Lymphocytes % Fld Mesothelial Cell % % Fluid Crystals Rheumatoid Factor POSITIVE A (Negative) 08/18/17 08/18/17 08/18/17 Range/Units 04:32 04:32 04:32 WBC (4.8-10.8) x10^3/uL RBC (4.20-5.40) 10^6/uL Hgb (12.0-16.0) g/dL Hct (37.0-47.0) % MCV (81.0-99.0) fL MCH (27.0-31.0) pg MCHC (32.0-36.0) g/dL RDW (12.0-15.0) % Plt Count (130-450) 10^3/uL MPV (7.9-10.8) fL Neut # (1.5-6.6) 10^3/uL Lymph # (1.5-3.5) 10^3/uL [place] # (0.0-1.0) 10^3/uL Eos # (0.0-0.7) 10^3/uL Baso # (0.0-0.1) 10^3/uL Absolute Nucleated RBC x10^3/uL Nucleated RBC % /100WBC Manual Slide Review Platelet Estimate (NORMAL) Platelet Morphology (NORMAL) RBC Morph Micro Appear (NORMAL) ESR (0-30) mm/Hr Sodium 141 (135-145) mmol/L Potassium 3.4 L (3.5-5.0) mmol/L Chloride 111 (101-111) mmol/L Carbon Dioxide 23 (21-32) mmol/L Anion Gap 7.0 (6-13) BUN 19 (6-20) mg/dL Creatinine 0.8 (0.4-1.0) mg/dL Estimated GFR (MDRD) 68 L (>89) Glucose 139 H (70-100) mg/dL Calcium 8.6 (8.5-10.3) mg/dL Magnesium 1.8 (1.7-2.8) mg/dL Total Bilirubin 0.4 (0.2-1.0) mg/dL AST 24 (10-42) IU/L ALT 41 (10-60) IU/L Alkaline Phosphatase 178 H (42-121) IU/L Ammonia (7-35) umol/L C-Reactive Protein 17.2 H (0-1.0) mg/dL Total Protein 5.7 L (6.7-8.2) g/dL Albumin 2.3 L (3.2-5.5) g/dL Globulin 3.4 (2.1-4.2) g/dL Albumin/Globulin Ratio 0.7 L (1.0-2.2) Vitamin B12 587 (180-914) pg/mL TSH 3.49 (0.34-5.60) uIU/mL Fluid Source Fluid Color Fluid Clarity Fluid WBC /mm^3 Fluid RBC /mm^3 Fluid Neutrophils % % Fluid Lymphocytes % Fld Mesothelial Cell % % Fluid Crystals Rheumatoid Factor (Negative) 08/18/17 08/17/17 08/17/17 Range/Units 04:32 09:00 09:00 WBC 10.7 (4.8-10.8) x10^3/uL RBC 3.93 L (4.20-5.40) 10^6/uL Hgb 9.0 L (12.0-16.0) g/dL Hct 28.3 L (37.0-47.0) % MCV 72.0 L (81.0-99.0) fL MCH 22.8 L (27.0-31.0) pg MCHC 31.6 L (32.0-36.0) g/dL RDW 20.6 H (12.0-15.0) % Plt Count 258 (130-450) 10^3/uL MPV 7.9 (7.9-10.8) fL Neut # 7.2 H (1.5-6.6) 10^3/uL Lymph # 1.7 (1.5-3.5) 10^3/uL [place] # 1.1 H (0.0-1.0) 10^3/uL Eos # 0.7 (0.0-0.7) 10^3/uL Baso # 0.0 (0.0-0.1) 10^3/uL Absolute Nucleated RBC 0.00 x10^3/uL Nucleated RBC % 0.0 /100WBC Manual Slide Review Indicated Platelet Estimate NORMAL (130-450,000) (NORMAL) Platelet Morphology NORMAL APPEARANCE (NORMAL) RBC Morph Micro Appear 1+ OVALOCYTES (NORMAL) ESR (0-30) mm/Hr Sodium (135-145) mmol/L Potassium (3.5-5.0) mmol/L Chloride (101-111) mmol/L Carbon Dioxide (21-32) mmol/L Anion Gap (6-13) BUN (6-20) mg/dL Creatinine (0.4-1.0) mg/dL Estimated GFR (MDRD) (>89) Glucose (70-100) mg/dL Calcium (8.5-10.3) mg/dL Magnesium (1.7-2.8) mg/dL Total Bilirubin (0.2-1.0) mg/dL AST (10-42) IU/L ALT (10-60) IU/L Alkaline Phosphatase (42-121) IU/L Ammonia (7-35) umol/L C-Reactive Protein (0-1.0) mg/dL Total Protein (6.7-8.2) g/dL Albumin (3.2-5.5) g/dL Globulin (2.1-4.2) g/dL Albumin/Globulin Ratio (1.0-2.2) Vitamin B12 (180-914) pg/mL TSH (0.34-5.60) uIU/mL Fluid Source KNEE Fluid Color YELLOW Fluid Clarity CLOUDY Fluid WBC 96433 /mm^3 Fluid RBC 4951 /mm^3 Fluid Neutrophils % 98 % Fluid Lymphocytes % 2 Fld Mesothelial Cell % 0 % Fluid Crystals NONE SEEN Rheumatoid Factor (Negative) 08/17/17 Range/Units 09:00 WBC (4.8-10.8) x10^3/uL RBC (4.20-5.40) 10^6/uL Hgb (12.0-16.0) g/dL Hct (37.0-47.0) % MCV (81.0-99.0) fL MCH (27.0-31.0) pg MCHC (32.0-36.0) g/dL RDW (12.0-15.0) % Plt Count (130-450) 10^3/uL MPV (7.9-10.8) fL Neut # (1.5-6.6) 10^3/uL Lymph # (1.5-3.5) 10^3/uL [place] # (0.0-1.0) 10^3/uL Eos # (0.0-0.7) 10^3/uL Baso # (0.0-0.1) 10^3/uL Absolute Nucleated RBC x10^3/uL Nucleated RBC % /100WBC Manual Slide Review Platelet Estimate (NORMAL) Platelet Morphology (NORMAL) RBC Morph Micro Appear (NORMAL) ESR (0-30) mm/Hr Sodium (135-145) mmol/L Potassium (3.5-5.0) mmol/L Chloride (101-111) mmol/L Carbon Dioxide (21-32) mmol/L Anion Gap (6-13) BUN (6-20) mg/dL Creatinine (0.4-1.0) mg/dL Estimated GFR (MDRD) (>89) Glucose (70-100) mg/dL Calcium (8.5-10.3) mg/dL Magnesium (1.7-2.8) mg/dL Total Bilirubin (0.2-1.0) mg/dL AST (10-42) IU/L ALT (10-60) IU/L Alkaline Phosphatase (42-121) IU/L Ammonia (7-35) umol/L C-Reactive Protein (0-1.0) mg/dL Total Protein (6.7-8.2) g/dL Albumin (3.2-5.5) g/dL Globulin (2.1-4.2) g/dL Albumin/Globulin Ratio (1.0-2.2) Vitamin B12 (180-914) pg/mL TSH (0.34-5.60) uIU/mL Fluid Source KNEE Fluid Color YELLOW Fluid Clarity CLOUDY Fluid WBC 84781 /mm^3 Fluid RBC 9176 /mm^3 Fluid Neutrophils % 99 % Fluid Lymphocytes % 1 Fld Mesothelial Cell % 0 % Fluid Crystals Rheumatoid Factor (Negative) - Current Medications Current Medications: Current Medications Generic Name Dose Route Start Last Admin Trade Name Freq PRN Reason Stop Dose Admin Clonidine HCl 0.1 mg 08/17/17 08:34 08/17/17 20:36 Catapres PO 0.1 mg BID PRN Administration Hypertensive Emergency Ceftriaxone Sodium 1 gm/ 100 mls @ 200 mls/hr 08/17/17 20:00 08/17/17 21:00 Sodium Chloride IV Infused Q24H EDOUARD Infusion Sodium Chloride 1,000 mls @ 50 mls/hr 08/17/17 18:27 08/18/17 05:09 Normal Saline 0.9% IV 50 mls/hr .Q20H EDOUARD Administration Polyethylene Glycol 17 gm 08/17/17 09:00 08/17/17 07:47 Miralax PO Not Given DAILY EDOUARD Sodium Chloride 10 ml 08/16/17 20:36 08/17/17 11:44 Normal Saline Flush 0.9% IVP 10 ml PRN PRN Administration NEEDED PER PROVIDER ORDERS Sodium Chloride 10 ml 08/17/17 01:00 08/18/17 01:00 Normal Saline Flush 0.9% IVP Not Given 0100,0900,1700 EDOUARD
[2017-08-18] MEDS ORDERED: POTASSIUM CHLORIDE 20 MEQ TABLET PO ONE (07:37)
[2017-08-18] MEDS ORDERED: LISINOPRIL 5 MG TABLET PO SCH (09:00)
[2017-08-18] MEDS ORDERED: GADOBUTROL 10 MMOL/10 ML SYRINGE ONE (09:30)
[2017-08-18] MEDS ORDERED: predniSONE 5 MG TABLET PO SCH (10:00)
[2017-08-18] MEDS ORDERED: GADOBUTROL 10 MMOL/10 ML SYRINGE IVP ONE (10:10)
[2017-08-18] MEDS: POLYETHYLENE GLYCOL 3350 17 GM PACKET PO SCH ×2 (11:03→17:20)
--- NOTE | 2017-08-18 11:41 | MRI Preliminary Report ---
Exam: MRI ABDOMEN W/WO IMPRESSION: 1. Liver lesions with imaging characteristics consistent with hemangiomas 2. Hepatic steatosis 3. 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 Annual MRI pancreas/MRCP can evaluate. 4. Mild cardiomegaly [facility] SITE ID: [id number]
--- NOTE | 2017-08-18 11:41 | MRI Report ---
EXAM: MR ABDOMEN WITH AND WITHOUT CONTRAST (MR LIVER) EXAM DATE: 08/18/2017 10:54 AM. CLINICAL HISTORY: Liver 5 cm nodule and elevated enzyme. COMPARISON: CT abdomen and pelvis 08/17/2017. TECHNIQUE: Multiplanar breath-hold T1, T2, and DWI sequences obtained through the abdomen on an [facility] [place] [facility]rence. Images obtained before and after administration of 8 mL Gadavist intravenous contrast. Multiph ase postcontrast images obtained of the liver and abdomen. FINDINGS: Lung Bases: Mild cardiomegaly. Liver: T2 hyperintense, T1 hypointense peripheral nodular interrupted enhancing lesion in segment 8 o f the right hepatic lobe, series 801, axial image 19, measures 4.4 x 2.8 cm, with centripetal filling on subsequent phases, following blood pool signal intensity, consistent with hemangioma. T2 hyperint ense, T1 hypointense peripheral nodular interrupted enhancing lesion with centripetal filling followi ng blood pool signal intensity on all phases, consistent with hemangioma seen in segment 2 of the lef t hepatic lobe, series 801, axial image 19, measures 1 cm. Liver loses some signal on out of phase im aging consistent with hepatic steatosis. Gallbladder: Cholecystectomy. Pancreas: T2 hyperintense, T1 hypointense nonenhancing cystic mass in the pancreatic tail, series 801 , axial image 15, measures 1.2 cm, without worrisome features or high risk stigmata. Spleen: The spleen appears normal. Incidental splenule. Kidneys and Adrenals: Symmetric perinephric edema. No solid mass. There are no cysts in the kidneys. The adrenals appear normal. Bowel: The small bowel and colon appear normal with no inflammation or obstruction. Retroperitoneum: The retroperitoneal structures appear normal with no mass or lymphadenopathy. Artifacts: Motion. IMPRESSION: 1. Liver lesions with imaging characteristics consistent with hemangiomas 2. Hepatic steatosis 3. 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 Annual MRI pancreas/MRCP can evaluate. 4. Mild cardiomegaly [facility] Referring Provider Line: [phone] SITE ID: [id number]
[2017-08-18 15:01] LABS: HEPATITIS A IGM NON-REACTIVE (NON-REACTIVE); HEPATITIS B CORE ANTIBODY IGM NON-REACTIVE (NON-REACTIVE); HEPATITIS B SURFACE ANTIGEN NON-REACTIVE (NON-REACTIVE); HEPATITIS C ANTIBODY NON-REACTIVE (NON-REACTIVE)
--- NOTE | 2017-08-18 15:47 | PROVIDER PROGRESS NOTE ---
Subjective - Prog Note Date Prog Note Date: 08/18/17 - Subjective Pt reports feeling: No change Subjective: pt is alert, and clearly to have conversation with me. Pt denies fever, chill, CP, SOB. Pt report she did not take any meds now. But pt report she took some NSAIDs before for her oesteoarthritis or joint pain. Current Medications - Current Medications Current Medications: Active Medications Clonidine HCl (Catapres) 0.1 mg PO BID PRN PRN Reason: Hypertensive Emergency Last Admin: 08/17/17 20:36 Dose: 0.1 mg Ceftriaxone Sodium 1 gm/ (Sodium Chloride) 100 mls @ 200 mls/hr IV Q24H [facility] Last Infusion: 08/17/17 21:00 Dose: Infused Lisinopril (Zestril) 5 mg PO DAILY [facility] Last Admin: 08/18/17 10:58 Dose: 5 mg Multi-Ingredient Ointment (Zinc Oxide) 1 applic TOP PRN PRN PRN Reason: Skin Care Ondansetron HCl (Zofran Inj) 4 mg IVP Q6HR PRN PRN Reason: Nausea / Vomiting Ondansetron HCl (Zofran Odt) 4 mg TL Q6HR PRN PRN Reason: Nausea / Vomiting Oxycodone HCl (Roxicodone) 5 mg PO Q4HR PRN PRN Reason: Pain 5 to 7 Polyethylene Glycol (Miralax) 17 gm PO DAILY [facility] Last Admin: 08/18/17 11:03 Dose: Not Given Prednisone (Deltasone) 5 mg PO DAILYWM [facility] Last Admin: 08/18/17 10:58 Dose: 5 mg Sodium Chloride (Normal Saline Flush 0.9%) 10 ml IVP PRN PRN PRN Reason: NEEDED PER PROVIDER ORDERS Last Admin: 08/17/17 11:44 Dose: 10 ml Sodium Chloride (Normal Saline Flush 0.9%) 10 ml IVP 0100,0900,1700 [facility] Last Admin: 08/18/17 10:58 Dose: 10 ml Levothyroxine Sodium 25 mcg PO DAILY 08/18/17 Objective - Vital Signs/Intake & Output Reviewed Vital Signs: Yes Vital Signs: Vital Signs x48h Temp Pulse Pulse Pulse Resp BP BP 08/18/17 12:00 76 18 192/77 H 08/18/17 11:02 80 65 192/77 H 08/18/17 08:45 36.8 C 65 18 184/73 H BP Pulse Ox 08/18/17 12:00 96 08/18/17 11:02 203/72 H 08/18/17 08:45 96 Intake & Output: Intake & Output 08/15/17 08/16/17 08/17/17 08/18/17 23:59 23:59 23:59 23:59 Intake Total 500 1340 1235 Balance 500 1340 1235 - Objective General Appearance: positive: No acute distress, Alert. negative: Lethargic Eyes Bilateral: positive: Normal inspection, PERRL, No lid inflammation, Conjunctivae nml ENT: positive: ENT inspection nml, Pharynx nml, No signs of dehydration. negative: Purulent nasal drainage, Pharyngeal erythema, Oral lesions Neck: positive: Nml inspection, Thyroid nml, No JVD, Trachea midline. negative : Thyromegaly, Stiff neck, Carotid bruit, Swelling/bruising, Tracheal deviation Respiratory: positive: Chest non-tender, No respiratory distress, Breath sounds nml. negative: Wheezes, Rales, Rhonchi Cardiovascular: positive: Regular rate & rhythm, No murmur, No gallop. negative : Irregularly irregular, Extrasystoles, Tachycardia, Bradycardia, Systolic murmur, Diastolic murmur Peripheral Pulses: 2+ Radial (R), 2+ Radial (L), 2+ Dorsalis pedis (R), 2+ Dorsalis pedis (L) Abdomen: positive: Non-tender, No organomegaly, Nml bowel sounds. negative: No distention, Guarding, Rebound Back: positive: Nml inspection. negative: CVA tenderness (R), CVA tenderness (L ) Skin: positive: Color nml, No rash, Warm, Dry. negative: Cyanosis, Diaphoresis , Pallor Extremities: positive: Non-tender, Nml appearance, Joint swelling. negative: Pedal edema, Calf tenderness, Marissa's sign/cords Neurologic/Psychiatric: positive: Sensation nml, Mood/affect nml, Weakness. negative: Sensory loss, Facial droop, Slurred/abnml speech, Depressed mood/ affect - Lab Results Fish Bones: 08/18/17 04:32 08/18/17 04:32 Other Labs: Lab Results x24hrs 08/18/17 08/18/17 08/18/17 Range/Units 04:32 04:32 04:32 WBC (4.8-10.8) x10^3/uL RBC (4.20-5.40) 10^6/uL Hgb (12.0-16.0) g/dL Hct (37.0-47.0) % MCV (81.0-99.0) fL MCH (27.0-31.0) pg MCHC (32.0-36.0) g/dL RDW (12.0-15.0) % Plt Count (130-450) 10^3/uL MPV (7.9-10.8) fL Neut # (1.5-6.6) 10^3/uL Lymph # (1.5-3.5) 10^3/uL [place] # (0.0-1.0) 10^3/uL Eos # (0.0-0.7) 10^3/uL Baso # (0.0-0.1) 10^3/uL Absolute Nucleated RBC x10^3/uL Nucleated RBC % /100WBC Manual Slide Review Platelet Estimate (NORMAL) Platelet Morphology (NORMAL) RBC Morph Micro Appear (NORMAL) ESR 81 H (0-30) mm/Hr Sodium (135-145) mmol/L Potassium (3.5-5.0) mmol/L Chloride (101-111) mmol/L Carbon Dioxide (21-32) mmol/L Anion Gap (6-13) BUN (6-20) mg/dL Creatinine (0.4-1.0) mg/dL Estimated GFR (MDRD) (>89) Glucose (70-100) mg/dL Calcium (8.5-10.3) mg/dL Magnesium (1.7-2.8) mg/dL Total Bilirubin (0.2-1.0) mg/dL AST (10-42) IU/L ALT (10-60) IU/L Alkaline Phosphatase (42-121) IU/L Ammonia 20.9 (7-35) umol/L C-Reactive Protein (0-1.0) mg/dL Total Protein (6.7-8.2) g/dL Albumin (3.2-5.5) g/dL Globulin (2.1-4.2) g/dL Albumin/Globulin Ratio (1.0-2.2) Vitamin B12 (180-914) pg/mL TSH (0.34-5.60) uIU/mL Rheumatoid Factor POSITIVE A (Negative) Hepatitis A IgM Ab (NON-REACTIVE) Hep Bs Antigen (NON-REACTIVE) Hep B Core IgM Ab (NON-REACTIVE) Hepatitis C Antibody (NON-REACTIVE) Hep C Ab Signal/Cutoff (<1.00) 08/18/17 08/18/17 08/18/17 Range/Units 04:32 04:32 04:32 WBC (4.8-10.8) x10^3/uL RBC (4.20-5.40) 10^6/uL Hgb (12.0-16.0) g/dL Hct (37.0-47.0) % MCV (81.0-99.0) fL MCH (27.0-31.0) pg MCHC (32.0-36.0) g/dL RDW (12.0-15.0) % Plt Count (130-450) 10^3/uL MPV (7.9-10.8) fL Neut # (1.5-6.6) 10^3/uL Lymph # (1.5-3.5) 10^3/uL [place] # (0.0-1.0) 10^3/uL Eos # (0.0-0.7) 10^3/uL Baso # (0.0-0.1) 10^3/uL Absolute Nucleated RBC x10^3/uL Nucleated RBC % /100WBC Manual Slide Review Platelet Estimate (NORMAL) Platelet Morphology (NORMAL) RBC Morph Micro Appear (NORMAL) ESR (0-30) mm/Hr Sodium 141 (135-145) mmol/L Potassium 3.4 L (3.5-5.0) mmol/L Chloride 111 (101-111) mmol/L Carbon Dioxide 23 (21-32) mmol/L Anion Gap 7.0 (6-13) BUN 19 (6-20) mg/dL Creatinine 0.8 (0.4-1.0) mg/dL Estimated GFR (MDRD) 68 L (>89) Glucose 139 H (70-100) mg/dL Calcium 8.6 (8.5-10.3) mg/dL Magnesium 1.8 (1.7-2.8) mg/dL Total Bilirubin 0.4 (0.2-1.0) mg/dL AST 24 (10-42) IU/L ALT 41 (10-60) IU/L Alkaline Phosphatase 178 H (42-121) IU/L Ammonia (7-35) umol/L C-Reactive Protein 17.2 H (0-1.0) mg/dL Total Protein 5.7 L (6.7-8.2) g/dL Albumin 2.3 L (3.2-5.5) g/dL Globulin 3.4 (2.1-4.2) g/dL Albumin/Globulin Ratio 0.7 L (1.0-2.2) Vitamin B12 587 (180-914) pg/mL TSH 3.49 (0.34-5.60) uIU/mL Rheumatoid Factor (Negative) Hepatitis A IgM Ab (NON-REACTIVE) Hep Bs Antigen (NON-REACTIVE) Hep B Core IgM Ab (NON-REACTIVE) Hepatitis C Antibody (NON-REACTIVE) Hep C Ab Signal/Cutoff (<1.00) 18 08/17/17 Range/Units 04:32 04:04 WBC 10.7 (4.8-10.8) x10^3/uL RBC 3.93 L (4.20-5.40) 10^6/uL Hgb 9.0 L (12.0-16.0) g/dL Hct 28.3 L (37.0-47.0) % MCV 72.0 L (81.0-99.0) fL MCH 22.8 L (27.0-31.0) pg MCHC 31.6 L (32.0-36.0) g/dL RDW 20.6 H (12.0-15.0) % Plt Count 258 (130-450) 10^3/uL MPV 7.9 (7.9-10.8) fL Neut # 7.2 H (1.5-6.6) 10^3/uL Lymph # 1.7 (1.5-3.5) 10^3/uL [place] # 1.1 H (0.0-1.0) 10^3/uL Eos # 0.7 (0.0-0.7) 10^3/uL Baso # 0.0 (0.0-0.1) 10^3/uL Absolute Nucleated RBC 0.00 x10^3/uL Nucleated RBC % 0.0 /100WBC Manual Slide Review Indicated Platelet Estimate NORMAL (130-450,000) (NORMAL) Platelet Morphology NORMAL APPEARANCE (NORMAL) RBC Morph Micro Appear 1+ OVALOCYTES (NORMAL) ESR (0-30) mm/Hr Sodium (135-145) mmol/L Potassium (3.5-5.0) mmol/L Chloride (101-111) mmol/L Carbon Dioxide (21-32) mmol/L Anion Gap (6-13) BUN (6-20) mg/dL Creatinine (0.4-1.0) mg/dL Estimated GFR (MDRD) (>89) Glucose (70-100) mg/dL Calcium (8.5-10.3) mg/dL Magnesium (1.7-2.8) mg/dL Total Bilirubin (0.2-1.0) mg/dL AST (10-42) IU/L ALT (10-60) IU/L Alkaline Phosphatase (42-121) IU/L Ammonia (7-35) umol/L C-Reactive Protein (0-1.0) mg/dL Total Protein (6.7-8.2) g/dL Albumin (3.2-5.5) g/dL Globulin (2.1-4.2) g/dL Albumin/Globulin Ratio (1.0-2.2) Vitamin B12 (180-914) pg/mL TSH (0.34-5.60) uIU/mL Rheumatoid Factor (Negative) Hepatitis A IgM Ab NON-REACTIVE (NON-REACTIVE) Hep Bs Antigen NON-REACTIVE (NON-REACTIVE) Hep B Core IgM Ab NON-REACTIVE (NON-REACTIVE) Hepatitis C Antibody NON-REACTIVE (NON-REACTIVE) Hep C Ab Signal/Cutoff 0.00 (<1.00) Assessment/Plan - Problem List (1) Metabolic encephalopathy Impression: (1) Metabolic encephalopathy Impression: pt continue alert and oriented +2. test TSH, B12 and ammonia with in normal arrange continue neuro check vital monitor pt is alert and have a clear conversation with me. It seems resolved continue orientation chest TSH, B12, ammonia level, it seems pt has abnormal liver function as well. neuro check vital monitor (2) Effusion, left knee Impression: left knee is still some swelling but no erythema, no warmth, or tenderness. right knee swelling seems better follow up orthopedics recommendation continue PT/OT CRP/ESR positive, RA is positive, DsDNA is pending. pt has hx of taking NAIDS for joint pain. Effusion gram staining is negative, but moderate WBC start on lower dosage of Prednisone consult with orthopedics. 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 Cystic lesion in the pancreatic tail may represent a neoplasm. annual MRI/MRCP is recommended. I discuss the all test results with pt and her grandson. order CT of abdomen/pelvic, R/O abnormal finding in US of liver continue monitor liver function and follow up hepatitis panel (3) UTI (urinary tract infection) Qualifiers: Urinary tract infection type: acute cystitis Hematuria presence: without hematuria Qualified Code(s): N30.00 - Acute cystitis without hematuria
[2017-08-18] MEDS: cloNIDine 0.1 MG TABLET PO PRN (17:21)
[2017-08-18] MEDS: cefTRIAXone 1 GM in SODIUM CHLORIDE 0.9% MINIBAG 100 ML IV SCH (20:21)
[2017-08-19 05:06] LABS: BASOPHILS # (AUTO) 0.1 10^3/uL (0.0-0.1); BASOPHILS % (AUTO) 0.8 %; EOSINOPHILS # (AUTO) 0.6 10^3/uL (0.0-0.7); EOSINOPHILS % (AUTO) 5.7 %; HGB - HEMOGLOBIN 9.1 g/dL (12.0-16.0); LYMPHOCYTES # (AUTO) 2.2 10^3/uL (1.5-3.5); LYMPHOCYTES % (AUTO) 20.4 %; MEAN CORPUSCULAR HEMOGLOBIN 22.6 pg (27.0-31.0); MEAN CORPUSCULAR HGB CONC 31.1 g/dL (32.0-36.0); MEAN CORPUSCULAR VOLUME 72.8 fL (81.0-99.0); MEAN PLATELET VOLUME 7.9 fL (7.9-10.8); MONOCYTES # (AUTO) 0.9 10^3/uL (0.0-1.0); MONOCYTES % (AUTO) 8.7 %; NEUTROPHILS # (AUTO) 6.8 10^3/uL (1.5-6.6); NEUTROPHILS % (AUTO) 64.4 %; PLT - PLATELET COUNT 296 10^3/uL (130-450); RED BLOOD COUNT 4.03 10^6/uL (4.20-5.40); RED CELL DISTRIBUTION WIDTH 20.6 % (12.0-15.0); WHITE BLOOD COUNT 10.6 x10^3/uL (4.8-10.8)
[2017-08-19 05:12] LABS: ALBUMIN 2.2 g/dL (3.2-5.5); ALBUMIN/GLOBULIN RATIO 0.6 (1.0-2.2); BILIRUBIN,TOTAL 0.3 mg/dL (0.2-1.0); CALCIUM 8.5 mg/dL (8.5-10.3); CREATININE 0.9 mg/dL (0.4-1.0); TOTAL PROTEIN 5.6 g/dL (6.7-8.2)
[2017-08-19 05:41] LABS: PLATELET ESTIMATE, MANUAL NORMAL (130-450,000) (NORMAL); PLATELET MORPHOLOGY NORMAL APPEARANCE (NORMAL)
[2017-08-19] MEDS ORDERED: LISINOPRIL 5 MG TABLET PO SCH (08:09)
[2017-08-19 08:37] LABS: MEAN RETIC VALUE 102.4; RED BLOOD COUNT 4.26 10^6/uL (4.20-5.40)
[2017-08-19 08:59] LABS: % IRON SATURATION 7 % (20-50); IRON 20 ug/dL (28-170); TOTAL IRON BINDING CAPACITY 286 ug/dL (250-450); TRANSFERRIN 204 mg/dL (192-382)
[2017-08-19] MEDS ORDERED: FERROUS SULFATE 325 MG TABLET PO SCH (09:00)
[2017-08-19 09:10] LABS: FERRITIN 45.1 ng/mL (11.0-306.8)
[2017-08-19] MEDS: POLYETHYLENE GLYCOL 3350 17 GM PACKET PO SCH (09:25)
[2017-08-19] MEDS: SODIUM CHLORIDE FLUSH 0.9% 10 ML SYRINGE IVP SCH ×2 (09:26→09:41)
[2017-08-19] MEDS: oxyCODONE 5 MG TABLET PO PRN ×2 (09:41→14:45)
[2017-08-19] MEDS ORDERED: ACETAMINOPHEN 325 MG TABLET PO PRN (12:40)
--- NOTE | 2017-08-19 14:52 | Discharge Plan ---
"Discharge Plan for SNF / [facility] - DC Plan and Transition Orders Disposition: 03 SNF DC/Xfer Condition: Fair SNF Transition Orders: Admit to: [[facility]] under the care of [Doctor Romelia Haider] Discharge Diagnosis: [effusion, left knee; UTI; abnormal liver function] Medicare Certification: I certify that [facility] nursing home care is medically necessary on a continuing basis for any of the conditions for which she/he is receiving care during hospitalization. Notify PCP of admission and forward orders to primary provider for signature. Weight on admission and [79.5 kg]. Call PCP immediately if weight increases by [4] pounds or if patient develops dyspnea, chest pain/tightness or edema. House Bowel Program: [Yes] If no BM after 2 days, nurse may give M.O.M. 30ml PO PRN and /or ducolax Supp 1 ND and /or MARISEL 250mg P.O., and/or senna 1-2 tabs PO. On day 3 nurse may give repeat above order until residents constipation is resolved. Immunizations: Annual Influenza Vaccine: [Yes]. (between Dec 31 and July 30.) Unless allergy or already given Two-Step PPD: [Yes] per [facility] [id number] or appropriate documentation of approved exceptions Treatments & Other Orders: [May see admission provider at [facility] when pt is arrival to facility, may see Dr. Alba Owens in orthopedic clinic in two weeks.] Oxygen Orders: [PRN] Lab Tests or X-Rays Orders: [n] Orthopedic Orders: [may see Dr. Alba Owens in orthopedic clinic in two weeks.]. Medications: PLEASE REFER TO THE DISCHARGE MEDICATION LIST. Insulin Orders? [No] Diagnosis: Diabetes Initiate hypo and hyperglycemia protocols for BG <70 and BG >375. May check BG prn for signs/symptoms of dysglycemia. Frequency of BG checks: [AC/Meal/HS] Basal Insulin: [] Lantus 100 units / ml inject subq as follows: [] [] Other: [] Correction Insulin: - Select the type of insulin below [Choose: Novolog/Humalog]100 units /ml insulin inject subq per orders indicate below [] LOW DOSE [] MODERATE DOSE [] MODERATE/HIGH DOSE [] HIGH DOSE GB UNITS GB UNITS GB UNITS GB UNITS 61-140 0 UNITS 61-140 0 UNITS 61-140 0 UNITS 61-140 0 UNITS 141-175 1 UNITS 141-175 1 UNITS 141-175 2 UNITS 141-175 3 UNITS 176-225 2 UNITS 176-225 3 UNITS 176-225 4 UNITS 176-225 5 UNITS 226-275 3 UNITS 226-275 5 UNITS 226-275 6 UNITS 226-275 7 UNITS 276-325 4 UNITS 276-325 7 UNITS 276-325 8 UNITS 276-325 9 UNITS 326-375 5 UNITS 326-375 9 UNITS 326-375 10 UNITS 326-375 11 UNITS >375 CONTACT MD >375 CONTACT MD >375 CONTACT MD >375 CONTACT MD Custom Dosing: [Choose: None/Novolog/Humalog] 100 units/ml Insulin inject subq as follows: GB Units 61-140 [] Units 141-175 [] Units 176-225 [] Units 226-275 [] Units 276-325 []Units 326-375 [] Units >375 Contact MD Allergies and Adverse Reactions: Allergies Allergy/AdvReac Type Severity Reaction Status Date / Time No Known Drug Allergies Allergy Verified 08/16/17 17:22 - Medications New Prescriptions: oxyCODONE [Roxicodone] 5 mg PO Q4HR PRN #20 tablet PRN Reason: Pain 5 to 7 Ferrous Sulfate 325 mg PO DAILY #10 tablet Lisinopril [Zestril] 10 mg PO DAILY #14 tablet Nitrofurantoin Monohyd/M-Cryst [Macrobid 100 mg Capsule] 100 mg PO BID #14 capsule - Diet Type: Geriatric Texture: Regular Liquids: Thin May have monthly special meal: Yes - Therapies | Activity Therapy: Evaluation | Treat if indicated: PT, OT Rehabilitation Potential: Maximize functional status Activity: Activity as Tolerated Assistance Devices: Walker Additional Instructions: May see admission provider at [facility] when pt is arrival to the facility, may see Dr. Alba Owens in orthopedic clinic in two weeks."
[2017-08-19 14:59] VITALS: BP 133/65
--- NOTE | 2017-08-19 15:18 | DISCHARGE SUMMARY ---
"Discharge Summary Discharge Date: 08/19/17 Discharging Provider: MATTHEW Primary Care Provider: Bruce Nunez Condition at Discharge: Fair Discharge Disposition: SNF DC/Xfer Discharge Facility Name: [facility] - DIAGNOSES Admission Diagnoses: (1) Metabolic encephalopathy (2) Effusion, left knee (3) UTI (urinary tract infection) (4) Abnormal liver function Discharge Diagnoses with Status of Each Condition: (1) Metabolic encephalopathy resolved (2) Effusion, left knee slight improved in left knee but right knee seems normal. Orthopedics surgeon drainage both knee. The gram staining and culture of bilateral knee effusion are negative for bacteria infection but with moderate WBC. PT and OT evaluate and treat pt. Pt has weakness special on left side. SNF is recommended. Pt may need further drainage by orthopedics. Pt is advised to see Dr. Owens in two weeks by orthopedics surgeon. (3) UTI (urinary tract infection) pt was treated with Rocephin, and D/C with Macrobid for continue the antibiotics course (4) Abnormal liver function pt had US, CT and MRI of liver. I discussed all test results with pt and pt's grandson at pt's bedside. Answer all question and concerns. In MRI, pt has hemangiomas, cystic lesion in the pancreatic tail, annual MRI pancreas/MRCP for further evaluation. (5) anemia pt is asymptomatic, HGB 9.1 today. Anemia study indicates iron deficiency. Iron is prescribed to pt. (6) hypothyroidism continue home lower dosage levothyoxine. - HPI History of Present Illness: refer from Dr. Recinos's HPI for pt - CONSULTS | PROCEDURES Consultations: Dr. Owens, orthopedics Procedures: bilateral knee drainage. - ALLERGIES Allergies/Adverse Reactions: Allergies Allergy/AdvReac Type Severity Reaction Status Date / Time No Known Drug Allergies Allergy Verified 08/16/17 17:22 - MEDICATIONS Home Medications: Ambulatory Orders Medication Instructions Recorded Confirmed Levothyroxine Sodium 25 mcg PO DAILY 08/18/17 08/18/17 Ferrous Sulfate 325 mg PO DAILY #10 tablet 08/19/17 Lisinopril [Zestril] 10 mg PO DAILY #14 tablet 08/19/17 Nitrofurantoin Monohyd/M-Cryst 100 mg PO BID #14 capsule 08/19/17 [Macrobid 100 mg Capsule] oxyCODONE [Roxicodone] 5 mg PO Q4HR PRN #20 tablet 08/19/17 - PHYSICAL EXAM AT DISCHARGE General Appearance: positive: No acute distress, Alert. negative: Lethargic Eyes Bilateral: positive: Normal inspection, PERRL, No lid inflammation, Conjunctivae nml ENT: positive: ENT inspection nml, Pharynx nml, No signs of dehydration. negative: Purulent nasal drainage, Pharyngeal erythema, Oral lesions Neck: positive: Nml inspection, Thyroid nml, No JVD, Trachea midline. negative : Thyromegaly, Lymphadenopathy (R), Lymphadenopathy (L), Stiff neck, Carotid bruit, Swelling/bruising, Tracheal deviation Respiratory: positive: Chest non-tender, No respiratory distress, Breath sounds nml. negative: Wheezes, Rales, Rhonchi Cardiovascular: positive: Regular rate & rhythm, No murmur, No gallop. negative : Irregularly irregular, Extrasystoles, Tachycardia, Bradycardia, Systolic murmur, Diastolic murmur Peripheral Pulses: positive: 2+ Abdomen: positive: Non-tender, No organomegaly, Nml bowel sounds, No distention. negative: Tenderness, Guarding, Rebound Back: positive: Nml inspection. negative: CVA tenderness (R), CVA tenderness (L ) Skin: positive: Color nml, No rash, Warm, Dry. negative: Cyanosis, Diaphoresis , Pallor Extremities: positive: Non-tender, Joint swelling. negative: Calf tenderness, Marissa's sign/cords Neurologic/Psychiatric: positive: Oriented x3, Sensation nml. negative: Sensory loss, Facial droop, Slurred/abnml speech, Depressed mood/affect - LABS Result Diagrams: 08/19/17 04:35 08/19/17 04:35 - FOLLOW UP Follow Up: May see admission provider at [facility] when pt is arrival to facility, may see Dr. Alba Owens in orthopedic clinic in two weeks. - TIME SPENT Time Spent in Discharge (Minutes): 50"
== END 2017-08-19 16:07 | DRG 689 ==
LOC: EDUNIT# → SUPCPDRO 17:11 → ED 17:11 → ICU 20:36
PROVIDERS: ADMIT Specialist; ATTEND Nurse Practitioner Gerontology
PROC: 0S9D3ZX Drainage of Left Knee Joint, Percutaneous Approach, Diagnostic (ICD-10-PCS; principal; 2017-08-17)
PROC: 0S9C3ZX Drainage of Right Knee Joint, Percutaneous Approach, Diagnostic (ICD-10-PCS; 2017-08-17)
DX: N30.00 Acute cystitis without hematuria (principal); G93.41 Metabolic encephalopathy; E05.90 Thyrotoxicosis, unspecified without thyrotoxic crisis or storm; R40.2412 Glasgow coma scale score 13-15, at arrival to emergency department; K86.2 Cyst of pancreas; M25.462 Effusion, left knee; M25.461 Effusion, right knee; E87.6 Hypokalemia; B96.89 Other specified bacterial agents as the cause of diseases classified elsewhere; R79.89 Other specified abnormal findings of blood chemistry; D50.9 Iron deficiency anemia, unspecified; E03.9 Hypothyroidism, unspecified; E66.3 Overweight; W19.XXXA Unspecified fall, initial encounter; Y92.099 Unspecified place in other non-institutional residence as the place of occurrence of the external cause; M17.0 Bilateral primary osteoarthritis of knee; M16.0 Bilateral primary osteoarthritis of hip; R26.2 Difficulty in walking, not elsewhere classified; Z66 Do not resuscitate; F03.90 Unspecified dementia, unspecified severity, without behavioral disturbance, psychotic disturbance, mood disturbance, and anxiety; D18.03 Hemangioma of intra-abdominal structures; K76.0 Fatty (change of) liver, not elsewhere classified; Z68.28 Body mass index [BMI] 28.0-28.9, adult; Z87.440 Personal history of urinary (tract) infections; Z91.81 History of falling; Z90.49 Acquired absence of other specified parts of digestive tract
CPT/HCPCS: 36415; 74177; 74183; 76700; 80048; 80053; 80074; 80076; 81001; 81003; 82140; 82607; 82728; 83540; 83615; 83690; 83735; 84443; 84466; 84484; 85025; 85044; 85651; 86140; 86225; 86430; 87040; 87070; 87077; 87086; 87150; 87205; 89051; 89060; 96365; 99283; 99284